=== PATIENT | female | born 1940 | race Caucasian/White ===

== ENCOUNTER 2021-05-14 11:36 | Emergency (ER) | payer BC, MEDICARE ==
[~2021-05-14] VITALS: Ht 162.6 cm; Wt 46.3 kg
[2021-05-14 13:39] VITALS: BP 120/73
== END 2021-05-14 13:40 | disposition home or self-care (01) ==
LOC: ER 11:36
DX: S60.221A Contusion of right hand, initial encounter (principal); S05.11XA Contusion of eyeball and orbital tissues, right eye, initial encounter; Z60.2 Problems related to living alone; W01.0XXA Fall on same level from slipping, tripping and stumbling without subsequent striking against object, initial encounter; Y93.89 Activity, other specified; Y92.89 Other specified places as the place of occurrence of the external cause; Y99.8 Other external cause status
CPT/HCPCS: 70450-TC; 70486-TC; 73130-TC

== ENCOUNTER 2021-12-05 09:44 | Emergency (ER) | payer BC ==
[~2021-12-05] VITALS: Ht 162.6 cm; Wt 46.3 kg
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
--- NOTE | 2021-12-05 10:19 | NUR ---
X-RAY TECH AT THE BEDSIDE
[2021-12-05 10:59] VITALS: BP 120/82
--- NOTE | 2021-12-05 10:59 | NUR ---
Patient discharged to home in stable condition. Written and verbal after care instructions given. Patient verbalizes understanding of instruction.
== END 2021-12-05 10:59 | disposition home or self-care (01) ==
LOC: ER 09:50
DX: S83.91XA Sprain of unspecified site of right knee, initial encounter (principal); S73.102A Unspecified sprain of left hip, initial encounter; Z60.2 Problems related to living alone; X50.1XXA Overexertion from prolonged static or awkward postures, initial encounter; Y93.89 Activity, other specified; Y92.89 Other specified places as the place of occurrence of the external cause; Y99.8 Other external cause status
CPT/HCPCS: 73502; 73564-TC

== ENCOUNTER 2022-05-28 07:31 | Emergency (ER) | payer BC ==
[~2022-05-28] VITALS: Ht 162.6 cm; Wt 46.3 kg
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
--- NOTE | 2022-05-28 07:42 | NUR ---
AT BEDSIDE FOR EVAL
[2022-05-28] MEDS ORDERED: LIDOCAINE 0.5% HCL 50 ML VIAL ONE (07:44)
[2022-05-28] MEDS ORDERED: LIDOCAINE HCL/MPF 1% 30 ML VIAL IJ ONE (07:45)
--- NOTE | 2022-05-28 07:47 | NUR ---
LAC TRAY WITH LIDOCAINE 1% WITHOUT EPI AT [facility] PREPARED BY EMT
[2022-05-28] MEDS ORDERED: TDAP [DIPH/PERTUSSIS/TET] 0.5 ML VIAL IM ONE ×2 (08:00)
[2022-05-28] MEDS ORDERED: LIDOCAINE HCL/PF 1% 30 ML VIAL TP ONE (08:00)
--- NOTE | 2022-05-28 08:05 | NUR ---
STARTED THE STITCHING PROCEDURE ASEPTICALLY
--- NOTE | 2022-05-28 08:27 | NUR ---
APPLIED DRESSING ASEPTICALLY
[2022-05-28 08:43] VITALS: BP 133/69
--- NOTE | 2022-05-28 08:43 | NUR ---
Patient discharged to home in stable condition. Written and verbal after care instructions given. Patient verbalizes understanding of instruction.
== END 2022-05-28 08:44 | disposition home or self-care (01) ==
LOC: ER 07:36
DX: S61.011A Laceration without foreign body of right thumb without damage to nail, initial encounter (principal); Z60.2 Problems related to living alone; W26.8XXA Contact with other sharp object(s), not elsewhere classified, initial encounter; Y93.89 Activity, other specified; Y92.89 Other specified places as the place of occurrence of the external cause; Y99.8 Other external cause status
CPT/HCPCS: 99283; 12002; 90471; 90715; J3490 ×2; A6403

== ENCOUNTER 2022-09-17 10:46 | Emergency (ER) | payer BC ==
[~2022-09-17] VITALS: Ht 162.6 cm; Wt 45.8 kg
--- NOTE | 2022-09-17 11:12 | NUR ---
BIBS C/C R SHOULDER PAIN S/P FALL. A/O X 3
[2022-09-17 11:18] VITALS: BP 106/68
--- NOTE | 2022-09-17 11:24 | NUR ---
DR. VARGAS AT BEDSIDE
[2022-09-17] MEDS ORDERED: IBUP-1955 PO (12:53)
== END 2022-09-17 13:06 | disposition home or self-care (01) ==
LOC: ER 10:50
DX: S43.401A Unspecified sprain of right shoulder joint, initial encounter (principal); Z98.890 Other specified postprocedural states; Z79.899 Other long term (current) drug therapy; Z60.2 Problems related to living alone; W01.0XXA Fall on same level from slipping, tripping and stumbling without subsequent striking against object, initial encounter; Y93.89 Activity, other specified; Y92.89 Other specified places as the place of occurrence of the external cause; Y99.8 Other external cause status
CPT/HCPCS: 73030-TC; 73080-TC

== ENCOUNTER 2023-12-03 10:18 | Emergency (ER) | payer BC ==
[~2023-12-03] VITALS: Ht 162.6 cm; Wt 43.5 kg
[~2023-12-03 10:18] MED LIST: IBUP-1955 PO
[2023-12-03] MEDS ORDERED: ACETAMINOPHEN 325 MG TABLET ONE (11:42)
[2023-12-03 11:43] LABS: BASOPHILS % (AUTO) 0.5 % (0.0-2.0); EOSINOPHILS # (AUTO) 0.1 K/uL (0.0-0.7); EOSINOPHILS % (AUTO) 1.4 % (0.0-6.0); HEMATOCRIT 37 % (33-45); HEMOGLOBIN 12.3 g/dL (11.5-14.8); LYMPHOCYTES # (AUTO) 1.4 K/uL (0.8-4.8); LYMPHOCYTES % (AUTO) 21.5 % (20.0-44.0); MEAN CORPUSCULAR HEMOGLOBIN 30 PG (26.0-33.0); MEAN CORPUSCULAR HGB CONC 33 g/dl (31.0-36.0); MEAN CORPUSCULAR VOLUME 92 fL (82-100); MONOCYTES # (AUTO) 0.4 K/uL (0.1-1.30); MONOCYTES % (AUTO) 5.5 % (2.0-12.0); NEUTROPHILS # (AUTO) 4.6 K/uL (1.8-8.9); NEUTROPHILS % (AUTO) 71.1 % (43.0-81.0); PLATELET COUNT (AUTO) 257 K/uL (150-450); RED BLOOD CELL COUNT(AUTO) 4.07 MIL/uL (4.0-5.2); RED CELL DISTRIBUTION WIDTH 12.8 % (11.5-15.0); WHITE BLOOD COUNT (AUTO) 6.5 K/uL (4.3-11.0)
[2023-12-03] MEDS: ACETAMINOPHEN 325 MG TABLET PO ONE (11:43)
[2023-12-03 11:51] LABS: CALCIUM, SERUM 8.9 mg/dL (8.5-10.1); CREATININE 0.7 mg/dL (0.6-1.3); POTASSIUM 4.3 mmol/L (3.5-5.1)
[2023-12-03 11:55] LABS: INR 0.95 (0.91-1.10); PARTIAL THROMBOPLASTIN TIME 25.5 SEC (24.3-34.3); PROTHROMBIN TIME 9.8 SECS (9.2-11.1)
[2023-12-03 13:35] VITALS: TEMP 97.8
[2023-12-03 13:39] VITALS: BP 114/71; O2SAT 98
== END 2023-12-03 13:39 | disposition home or self-care (01) ==
LOC: ER 10:20
DX: M25.561 Pain in right knee (principal); M25.571 Pain in right ankle and joints of right foot; M54.9 Dorsalgia, unspecified; F10.10 Alcohol abuse, uncomplicated; Z60.2 Problems related to living alone; Y90.9 Presence of alcohol in blood, level not specified
CPT/HCPCS: 36415; 73564-TC; 73610-TC; 80048-TC; 85025-TC; 85730-TC; 93971-TC